=== PATIENT | male | born 1945 | race American Indian/Alaskan Native ===

== ENCOUNTER 2018-05-08 10:52 | Day surgery (SDC) | payer MEDICARE ==
[~2018-05-08 10:52] MED LIST: ANCEF/STERILE WATER 2 GM/20 ML IV NR; DILAUDID IV PRN; NACL 0.9% 1000 ML 1,000 ML IV SCH; ZOFRAN IV PRN
[2018-05-08] MEDS ORDERED: NACL BACTERIOSTATIC INFILTRATI ONE (11:30)
[2018-05-08] MEDS ORDERED: NACL 0.9% 1000 ML 1,000 ML IV SCH (12:00)
[2018-05-08] MEDS ORDERED: WATER FOR IRRIG STERILE IR ONE ×4 (12:48→12:49)
[2018-05-08] MEDS ORDERED: SORBITOL-MANNITOL IRRIG IR ONE (12:49)
[2018-05-08] MEDS ORDERED: DIPRIVAN 10 MG/ML IV ONE (13:18)
[2018-05-08] MEDS ORDERED: XYLOCAINE MPF 2% ONE (13:18)
[2018-05-08] MEDS ORDERED: DILAUDID ONE (13:26)
[2018-05-08] MEDS ORDERED: DECADRON ONE (13:33)
[2018-05-08] MEDS ORDERED: ZOFRAN ONE (13:39)
--- NOTE | 2018-05-08 14:11 | Short Stay Summary ---
Short Stay Documentation Date of service: 05/08/18 - History H&P: obtained from office - Allergies and Medications Current Medications: Allergies No Known Allergies Allergy (Verified 07/23/17 15:28) Home Medications Medication Instructions Recorded Confirmed Last Taken Type amLODIPine [Norvasc] 10 mg PO DAILY 07/23/17 05/08/18 05/08/18 09:00 History Latanoprost 0.005% [Xalatan 0.005%] 1 drop OP QPM 04/30/18 05/08/18 05/07/18 History Active Medications Cefazolin Sodium (Ancef/Sterile Water 2 Gm/20 Ml) 2 gm IV PREOP NR Stop: 05/08/18 23:59 Hydromorphone HCl (Dilaudid) 0.5 mg IV Q10MIN PRN PRN Reason: Pain , Severe (7-10) Stop: 05/08/18 18:00 Sodium Chloride (Nacl 0.9% 1000 Ml) 1,000 mls @ 100 mls/hr IV DIRECT TIANA Last Admin: 05/08/18 12:25 Dose: 100 mls/hr Ondansetron HCl (Zofran) 4 mg IV ONCE PRN PRN Reason: Nausea And Vomiting Stop: 05/08/18 18:00 - Brief post op/procedure progress note Date of procedure: 05/08/18 Pre-op diagnosis: recurrent bladder tumors (larger) Post-op diagnosis: same Procedure: cysto, UTRBT, cystogram Anesthesia: GETA Surgeon: SANDIP HAJI Estimated blood loss: minimal Pathology: list (bladder tumors) Specimen disposition: to lab Condition: stable - Hospital course Hospital course: refugio & robert on chart - Disposition Condition at discharge: Stable Disposition: DC-01 TO HOME OR SELFCARE Short Stay Discharge Plan Follow up with: KARLO ANTONY MD [Primary Care Provider] - 7 Days
[2018-05-08] MEDS ORDERED: NORCO 5/325 PO PRN (15:05)
--- NOTE | 2018-05-08 16:16 | Operative Report ---
PREOPERATIVE DIAGNOSIS: Recurrent bladder tumors (large). POSTOPERATIVE DIAGNOSIS: Recurrent bladder tumors (large). PROCEDURE: Cystoscopy, bilateral retrograde pyelograms, transurethral resection of multiple bladder tumors, cystogram. SURGEON: Raimro Garcia MD ANESTHESIA: General. ESTIMATED BLOOD LOSS: Minimal. FLUIDS: Crystalloid. COMPLICATIONS: No complications. INDICATIONS: This patient is a 73-year-old gentleman who is known to my service with a history of BPH, status post GreenLight laser of the prostate in 2013. He presented in 2017 with gross hematuria, was found to have a low-grade large bladder tumor, no muscle involvement. Revaluation showed some erythema in 2017. However, he recently presented to the office with recurrent gross hematuria on cystoscopy, bladder tumors. He presents now for intervention. Also, gives a history of cocaine abuse, he told Laureen, the preop nurse as well as Dr. Kwon, anesthesiologist. They elected to have this several days ago and felt comfortable proceeding. DESCRIPTION OF PROCEDURE: The patient was taken to the operative suite, placed in supine position. After adequate general anesthesia, placed in a dorsal lithotomy position, prepped and draped in a sterile fashion. Pancystourethroscopy was performed with a 22 Bangl[place]hi Storz cystoscope, no urethral abnormalities. His prostate was nonobstructing. The bladder, obvious posterior and anterior bladder tumors, multiple. Bilateral retrograde pyelograms were obtained with an 8-Bangladeshi Sabine catheter and 8 mL of contrast. No filling defects or obstruction. Using a 24-Bangladeshi resectoscope and loop, TUR of multiple tumors were performed and they were removed. An 18-Bangladeshi catheter was placed. Cystogram was performed. No extravasation. Bladder was drained. Rectal exam was benign. He was extubated and taken to recovery room. Due to the recurrent nature of his tumor, I suspect he will need intravesical therapy. We will discuss at his postoperative visit. JOB# [id number] JORDAN/YUDY
[2018-05-08 20:09] VITALS: BP 148/81
--- NOTE | 2018-05-09 07:38 | Fluoroscopy Report ---
FLUOROSCOPY RETROGRADE UROGRAPHY: HISTORY: Hematuria. FINDINGS: Fluoroscopy was provided by radiology during retrograde urography by the urologist. 5 fluoroscopic images were captured. There is adequate filling of the ureters and intrarenal collecting systems with no filling defects or anatomic abnormalities identified. Please correlate with the procedural report if needed. IMPRESSION: Retrograde pyelograms within normal limits.
--- NOTE | 2018-05-09 07:40 | Fluoroscopy Report ---
FLUOROSCOPY CYSTOGRAM STATIC - OR: HISTORY: Hematuria. FINDINGS: Fluoroscopy was provided by radiology during intraoperative cystogram by the urologist. 3 fluoroscopic images were captured. There is adequate filling of the bladder with no evidence of filling defect, mucosal abnormality or extravasation. IMPRESSION: Unremarkable cystogram.
== END 2018-05-08 17:15 | disposition home or self-care (01) ==
LOC: OR 10:52
PROVIDERS: ATTEND Urology
DX: C67.3 Malignant neoplasm of anterior wall of bladder (principal); C67.4 Malignant neoplasm of posterior wall of bladder
CPT/HCPCS: 52234; 74420; 74430; 88305; A4217; J0690; J1100; J1170; J2405; J2704; J7030; Q9967